=== PATIENT | male | born 1965 | race Two or more races ===

== ENCOUNTER → 2024-03-07 | Outpatient (CLI) | payer MEDICARE, MEDICAID, SELFPAY ==
[2024-03-07 10:24] LABS: Collection Type, Urine Clean Catch
[2024-03-07 11:54] LABS: Bacteria,Urine Rare; Bilirubin,Urine Negative (Negative); Blood,Urine Trace (Negative); Clarity,Urine Clear (Clear/Hazy); Color,Urine Yellow (Lt Yel-Yel); Glucose, Urine Negative (Negative); Ketones,Urine Negative (Negative); Leukocyte Esterase,Urine Negative (Negative); Nitrite,Urine Negative (Negative); PH,Urine 6.5 (5.0-7.0); Protein,Urine Trace (Neg - Trace); RBC,Urine 3 /hpf (0-3); Squamous Epithelial Cell,Urine < 1 /hpf (0-5); Urobilinogen,Urine Negative mg/dL (0.0-1.0); WBC,Urine 1 /hpf (0-5)
== END | disposition home or self-care (01) ==
LOC: SLDO 10:19
PROVIDERS: Referring Provider Family Medicine; Visit Provider Family Medicine
DX: R31.21 Asymptomatic microscopic hematuria (principal)
CPT/HCPCS: 81001

== ENCOUNTER → 2024-04-04 | Outpatient (CLI) | payer MEDICARE, MEDICAID, SELFPAY ==
[2024-04-04 12:52] LABS: Collection Type, Urine Clean Catch
[2024-04-04 13:41] LABS: Bilirubin,Urine Negative (Negative); Blood,Urine Trace (Negative); Clarity,Urine Clear (Clear/Hazy); Color,Urine Yellow (Lt Yel-Yel); Glucose, Urine Negative (Negative); Ketones,Urine Trace (Negative); Leukocyte Esterase,Urine Negative (Negative); Nitrite,Urine Negative (Negative); Protein,Urine Trace (Neg - Trace); RBC,Urine 3 /hpf (0-3); Specific Gravity,Urine 1.029 (1.001-1.035); Squamous Epithelial Cell,Urine < 1 /hpf (0-5); WBC,Urine 1 /hpf (0-5)
== END | disposition home or self-care (01) ==
LOC: SLDO 12:31
PROVIDERS: PCP Family Medicine; Referring Provider Family Medicine; Visit Provider Family Medicine
DX: R31.21 Asymptomatic microscopic hematuria (principal)
CPT/HCPCS: 81001

== ENCOUNTER → 2024-04-14 | Outpatient (CLI) | payer MEDICARE, MEDICAID, SELFPAY ==
[2024-04-14 13:26] LABS: Albumin, Serum 4.6 gm/dL (3.5-5.0); Anion Gap 8 (7-16); BUN/Creatinine Ratio 19 Ratio (12-20); Blood Urea Nitrogen 15 mg/dL (9-23); Calcium 9.9 mg/dL (8.3-10.6); Calcium (Corrected) 9.9 mg/dL (8.5-10.1); Carbon Dioxide 28.6 mMol/L (20.0-31.0); Chloride 99 mMol/L (98-107); Creatinine (Component) 0.8 mg/dL (0.6-1.3); Glucose 96 mg/dL (74-106); Osmolality,Calculated 272 (275-295); Phosphorous 3.9 mg/dL (2.4-5.1); Potassium 4.2 mMol/L (3.4-5.1); Sodium 136 mMol/L (136-145); eGFR > 60 See Note
== END | disposition home or self-care (01) ==
LOC: COPL 12:16
PROVIDERS: PCP Family Medicine; Referring Provider Family Medicine; Visit Provider Family Medicine
DX: Z01.812 Encounter for preprocedural laboratory examination (principal); N30.01 Acute cystitis with hematuria
CPT/HCPCS: 36415; 80069

== ENCOUNTER → 2024-05-12 | Outpatient (CLI) | payer MEDICARE, MEDICAID, SELFPAY ==
--- NOTE | 2024-05-12 11:30 | XR_ITS ---
Examination: CT abdomen with intravenous contrast CT pelvis with intravenous contrast 2-D coronal reconstructions 2-D sagittal reconstructions Date and time of exam:May 12, 2024 1151 hours INDICATIONS: Diagnosis acute cystitis, hematuria laboratory examination one month ago. CTDI: vol (mGy) 18.6 DLP: (mGycm) 1099 Technique: Multiple axial sections of the abdomen and pelvis have been obtained. 64 slice high-resolution scanner used. 3 mm axial sections have been obtained, post intravenous injection 60 cc Isovue-[id number] 2-D sagittal, coronal reconstructions obtained. Low dose protocols were performed. One or more of the following dose reduction techniques were used; automated exposure control, adjustment of the mA and/or KV according to patient size, use of iterative reconstruction technique. Findings: Atelectasis in the right lower lobe Fatty liver Absent gallbladder Spleen is not depicted Absent right kidney Mild left renal parenchymal scar formation No bowel obstruction 6 mm umbilical hernia containing incarcerated fat Normal appendix Colonic diverticulosis Minimal thickening of the urinary bladder wall Transverse prostate dimension 4 cm Fat-containing right inguinal hernia IMPRESSION: Absent right kidney Mild left renal parenchymal scar formation 6 mm umbilical hernia containing incarcerated fat Minimal cystitis pattern
== END | disposition home or self-care (01) ==
LOC: CCTX 11:11
PROVIDERS: PCP Family Medicine; Referring Provider Family Medicine; Visit Provider Family Medicine
DX: N28.89 Other specified disorders of kidney and ureter (principal); K42.9 Umbilical hernia without obstruction or gangrene; Z90.5 Acquired absence of kidney
CPT/HCPCS: 74177; A4649; Q9967

== ENCOUNTER → 2025-01-09 | Outpatient (CLI) | payer MEDICARE, MEDICAID, SELFPAY ==
[2025-01-09 14:49] LABS: Collection Type, Urine Clean Catch
[2025-01-09 16:22] LABS: Bacteria,Urine 1+; Bilirubin,Urine Negative (Negative); Blood,Urine 2+ (Negative); Color,Urine Yellow (Lt Yel-Yel); Glucose, Urine Negative (Negative); Ketones,Urine Negative (Negative); Leukocyte Esterase,Urine Positive (Negative); Nitrite,Urine Negative (Negative); PH,Urine 6.0 (5.0-7.0); Protein,Urine 1+ (Neg - Trace); RBC,Urine 30 /hpf (0-3); Specific Gravity,Urine 1.038 (1.001-1.035); Squamous Epithelial Cell,Urine < 1 /hpf (0-5); Transitional Epi Cells,Urine 3 /hpf (0-5); Urobilinogen,Urine Negative mg/dL (0.0-1.0); WBC,Urine 441 /hpf (0-5)
[2025-01-09 16:25] LABS: Clarity,Urine Hazy (Clear/Hazy)
[2025-01-09 18:43] LABS: Chlamydia trachomatis PCR Negative (Not Detect); Neisseria Gonorrhoeae DNA PCR Negative (Not Detect); Trichomonas Negative (Negative)
== END | disposition home or self-care (01) ==
LOC: SLDO 14:45
PROVIDERS: PCP Family Medicine; Referring Provider Physician Assistant; Visit Provider Physician Assistant
DX: N30.01 Acute cystitis with hematuria (principal)
CPT/HCPCS: 81001; 87077; 87086; 87186; 87491; 87591; 87661

== ENCOUNTER → 2025-02-16 | Outpatient (CLI) | payer MEDICARE, MEDICAID, SELFPAY ==
[2025-02-16 16:31] LABS: Prostate Specific Antigen 0.78 ng/mL (0-4.00)
[2025-02-16 16:32] LABS: Anion Gap 6 (7-16); BUN/Creatinine Ratio 15 Ratio (12-20); Blood Urea Nitrogen 15 mg/dL (9-23); Calcium 9.1 mg/dL (8.3-10.6); Carbon Dioxide 30.6 mMol/L (20.0-31.0); Chloride 103 mMol/L (98-107); Creatinine (Component) 1.0 mg/dL (0.6-1.3); Glucose 98 mg/dL (74-106); Osmolality,Calculated 280 (275-295); Potassium 4.0 mMol/L (3.4-5.1); Sodium 140 mMol/L (136-145); eGFR > 60 See Note
== END | disposition home or self-care (01) ==
LOC: COPL 14:21
PROVIDERS: PCP Family Medicine; Referring Provider Urology; Visit Provider Urology
DX: R31.1 Benign essential microscopic hematuria (principal)
CPT/HCPCS: 36415; 80048; 84153

== ENCOUNTER → 2025-02-16 | Outpatient (BNVA) | payer MEDICARE, MEDICAID, SELFPAY | END | disposition home or self-care (01) | PROVIDERS: PCP Family Medicine; Referring Provider Family Medicine; Visit Provider Urology | DX: N40.0 Benign prostatic hyperplasia without lower urinary tract symptoms (principal); R31.29 Other microscopic hematuria | CPT/HCPCS: 81003; 99212; G0463 ==

== ENCOUNTER 2025-03-02 07:30 | Day surgery (SDC) | payer MEDICARE, MEDICAID, SELFPAY ==
--- NOTE | 2025-03-01 06:46 | EKG_ITS ---
[facility] (Formerly [facility]) Test Date: 2025-03-01 Pat Name: NOAH ESPINAL Department: Room: - Gender: Male [employer]: ADRIAN : 1965 Requested By: Sidney Elder Order Number: [id number] Reading MD: Sidney Elder Measurements Intervals [place] Rate: 68 P: 57 VA: 153 QRS: 70 QRSD: 94 T: 55 QT: 380 QTc: 405 Interpretive Statements SINUS RHYTHM No previous ECG available for comparison /store/S0/[id number].pdf
[2025-03-01 09:58] VITALS: BMI 35.4
[2025-03-01 11:15] LABS: Basophils # (Auto) 0.0 Thou/mm3 (0.0-0.2); Basophils % (Auto) 1 % (0-2.5); Eosinophils # (Auto) 0.2 Thou/mm3 (0.0-0.5); Eosinophils % (Auto) 3 % (0-10); Hematocrit 38.4 % (41.0-53.0); Hemoglobin 13.0 g/dL (13.5-16.0); Immature Granulocytes Auto 0.02 Thou/mm3 (0.00-0.00); Lymphocytes # (Auto) 3.0 Thou/mm3 (1.0-4.8); Lymphocytes % (Auto) 42 % (10-50); Mean Corpuscular HGB Conc 33.9 g/dl (31.0-37.0); Mean Corpuscular Hemoglobin 32.1 pg (25.0-35.0); Mean Corpuscular Volume 95 fL (80-100); Monocytes # (Auto) 0.7 Thou/mm3 (0.0-0.8); Monocytes % (Auto) 10 % (0-12); Neutrophils # (Auto) 3.2 Thou/mm3 (1.8-7.7); Neutrophils % (Auto) 45 % (37-80); Nucleated Red Blood Cell # 0.00 Thou/mm3 (0.00-0.00); Nucleated Red Blood Cell % 0 /100 WBC (0); Platelet Count 274 Thou/mm3 (140-440); RDW Standard Deviation 51.1 fL (35.1-43.9); Red Blood Count 4.05 Miln/mm3 (4.50-5.90); White Blood Count 7.2 Thou/mm3 (3.8-10.6)
[2025-03-01 11:30] LABS: Anion Gap 7 (7-16); BUN/Creatinine Ratio 11 Ratio (12-20); Blood Urea Nitrogen 9 mg/dL (9-23); Calcium 9.4 mg/dL (8.3-10.6); Carbon Dioxide 31.8 mMol/L (20.0-31.0); Chloride 102 mMol/L (98-107); Creatinine (Component) 0.8 mg/dL (0.6-1.3); Estimated Creatinine Clearance 106.2 mL/min (>60); Glucose 105 mg/dL (74-106); Osmolality,Calculated 279 (275-295); Potassium 4.0 mMol/L (3.4-5.1); Sodium 141 mMol/L (136-145); eGFR > 60 See Note
[2025-03-02] VITALS (7 sets, daily range): BP systolic 102–149; BP diastolic 54–82; PULSE 69–81; RESP 14–16; TEMP 36.7–37.1; O2SAT 95–99; BMI 34.9
--- NOTE | 2025-03-02 10:09 | PD.SUROPNT ---
Date of Procedure 03/02/25 Pre Op Diagnosis Incarcerated incisional hernia Post Op Diagnosis Incarcerated incisional hernia Procedure Primary repair of incarcerated incisional hernia Findings An approximately 1.5 cm mid epigastric incisional hernia with incarcerated omentum Procedure Description Patient brought into the operating room in supine position. After administration of general tracheal anesthesia, patient's abdomen prepped and draped in standard surgical manner. Patient was noted to have midepigastric incisional hernia that was incarcerated. After administration of local anesthesia an approximately 3 cm incision was made over his previous scar and dissection was deepened into soft tissue. The hernia sac was identified and circumferentially dissected off surrounding tissue. The hernia sac was opened, the contents were incarcerated omentum. The sac was circumferentially dissected out surrounding tissue. Small portion of the omentum that I was unable to reduce was divided and the remainder of omentum was reduced. The defect was approximately 1.5 cm. The defect was primarily closed with interrupted sutures using 0 Ethibond. Soft tissue reapproximated with interrupted sutures using 2-0 Vicryl. Subcutaneous tissue closed with interrupted sutures using 2-0 Vicryl and the incision was closed with 4-0 Monocryl in subcuticular fashion. Dermabond and pressure dressings applied. Patient tolerated procedure well. He was extubated, breathing spontaneously and without difficulty and was transferred to postanesthesia care in stable condition. Instruments, needles and sponge counts were reported to be correct x 2. Anesthesia GETA and local Pathology / specimen Other (Hernia sac and contents) Estimated Blood Loss 5 Condition Stable Disposition PACU Surgeon Sidney Elder MD Surgical Staff Operation Date: 03/02/25 10:15 <No data on this case meets the specified criteria>
--- NOTE | 2025-03-02 10:18 | SUR.PHASEI ---
1018 Patient arrived to recovery resting comfortably in [facility], on oxygen 8L via oxy mask with an oral airway in place, breathing unlabored, vital signs stable, dressing intact to abdomen; dermabond, gauze, medipore tape, no bleeding noted, report received from Dr. Lafleur and Melanie LEON
--- NOTE | 2025-03-02 11:15 | SUR.PHASEII ---
1115 Patient disconnected from vital signs machine, dressing in his clothing and awaiting for his niece to arrive
--- NOTE | 2025-03-02 11:38 | SUR.PHASEII ---
1138 Patient meets discharge criteria from recovery, awake and alert, breathing unlabored, vital signs stable, denies pain and nausea, dressing intact; no bleeding noted, abdominal binder applied on patient per MD order, patient able to dress himself into his clothing, discharge instructions given to patient and patients niece on speaker phone, discharge instructions signed at car-side by patient niece, patient given all his belongings prior to discharge, transported via wheelchair and left in a private vehicle.
== END 2025-03-02 11:38 | disposition home or self-care (01) ==
PROVIDERS: PCP Family Medicine; Referring Provider Surgery; Visit Provider Surgery
PROC: (CPT 49592; principal; 2025-03-02 10:00)
DX: K43.0 Incisional hernia with obstruction, without gangrene (principal); Z01.810 Encounter for preprocedural cardiovascular examination; E78.00 Pure hypercholesterolemia, unspecified; Z79.899 Other long term (current) drug therapy
CPT/HCPCS: 49592; 36415; 80048; 85025; 93005; A4649; J0131; J1100; J1885; J2250; J2405; J2704; J3010; J3490

== ENCOUNTER → 2025-03-21 | Outpatient (BNVA) | payer MEDICARE, MEDICAID, SELFPAY | END | disposition home or self-care (01) | PROVIDERS: PCP Family Medicine; Referring Provider Family Medicine; Visit Provider Urology | DX: N40.1 Benign prostatic hyperplasia with lower urinary tract symptoms (principal); R39.12 Poor urinary stream; E66.9 Obesity, unspecified | CPT/HCPCS: 51741; 51798 ==